=== PATIENT | female | born 1990 | race Hispanic/Latino ===

== ENCOUNTER 2017-03-18 23:48 | Emergency (ER) | payer OTHER ==
[2017-03-19 01:04] VITALS: BP 107/60; PULSE 69; RESP 16; TEMP 97.6; O2SAT 98
[2017-03-19] MEDS ORDERED: Sodium Chloride 0.9% 1,000 ML IV STA (02:36)
[2017-03-19 02:58] LABS: BASO % 0.5 % (0.0-2.0); EOS # 0.1 K/uL (0.0-0.7); EOS % 1.4 % (0.0-4.0); HEMOGLOBIN 11.6 g/dL (12.0-16.0); LYMPH # 2.7 K/uL (1.0-4.3); LYMPH % 34.7 % (20.0-40.0); MEAN CELL VOLUME 66.8 fl (81.0-99.0); MEAN CORPUSCULAR HEMOGLOBIN 20.7 pg (27.0-31.0); MEAN PLATELET VOLUME 7.3 fl (7.2-11.7); MONO # 0.8 K/uL (0.0-0.8); MONO % 10.1 % (0.0-10.0); NEUT # 4.2 K/uL (1.8-7.0); NEUT % 53.3 % (50.0-75.0); NRBC % 0.1 % (0.0-0.0); RBC 5.59 Mil/uL (3.80-5.20); RED CELL DISTRIBUTION WIDTH 15.3 % (11.5-14.5); WHITE BLOOD COUNT 7.8 K/uL (4.8-10.8)
--- NOTE | 2017-03-19 03:10 | ED PDOC ---
HPI: Headache Time Seen by Provider: 03/19/17 02:30 Chief Complaint (Nursing): Headache Chief Complaint (Provider): headache History Per: Patient History/Exam Limitations: no limitations Onset/Duration Of Symptoms: Days (7) Current Symptoms Are (Timing): Still Present Pain Scale Rating Of: 7 Quality: Pressure Preceeding Symptoms: None Additional Complaint(s): Taniya Parra is a 26 yo F with PMH anemia who presented to the ED with complaint of L sided occipital headache x 1 week and lymphadenopathy in R posterior cervical chain x 1 month. Describes headache as unlike her usual headaches (which are more frontal), and describes the pain as a slow pulsating feeling, rates pain 7/10. Denies vomiting, nausea, loss of balance, loss of coordination, blurry vision, changes in vision. She took advil 2 days ago, states that it helped but that the pain came back when she awoke the next day. Also complains of having had a "sore and stiff" neck during Christmastime ( about 1 mo ago). States she has been feeling a "lump" in her neck on the R side since then, though the "soreness and stiffness" have since resolved. PMH: anemia Fam Hx: anemia Social hx: denies tobacco use, alcohol 4-5 shots or glasses of wine/time on 1 day a week, denies illicit drug use LMP: 03/18/17 Past Surg hx: none Past Medical History Vital Signs: Last Vital Signs Temp 97.6 F 03/19/17 01:01 Pulse 69 03/19/17 01:01 Resp 16 03/19/17 01:01 BP 107/60 03/19/17 01:01 Pulse Ox 98 03/19/17 01:01 - Medical History PMH: Anemia - Surgical History Surgical History: No Surg Hx - Family History Family History: States: Other Denies: Stroke, Diabetes, Hypertension Other Family History: anemia - Social History Current smoker - smoking cessation education provided: No Alcohol: Social Drugs: Denies - Home Medications Home Medications: Ambulatory Orders Medication Instructions Recorded Acetaminophen/Butalbital/Caf 1 tab PO TID PRN #15 tab 03/19/17 [Fioricet] Naproxen [Naprosyn] 1 tab PO BID PRN #30 tab 03/19/17 - Allergies Allergies/Adverse Reactions: Allergies Allergy/AdvReac Type Severity Reaction Status Date / Time Penicillins Allergy ANAPHYLAXIS Verified 03/19/17 01:05 Review of Systems Constitutional: Negative for: Fever, Chills, Weight loss Eyes: Negative for: Vision Change ENT: Negative for: Ear Pain, Nose Discharge, Throat Pain Cardiovascular: Negative for: Chest Pain, Palpitations, Light Headedness Respiratory: Negative for: Cough, Shortness of Breath Gastrointestinal: Negative for: Nausea, Vomiting, Abdominal Pain, Diarrhea Genitourinary Female: Negative for: Dysuria, Frequency Musculoskeletal: Positive for: Neck Pain Neurological: Positive for: Headache. Negative for: Weakness, Numbness, Incoordination Physical Exam - Reviewed Vital Signs Reviewed: Yes - Physical Exam Head Exam: Positive for: ATRAUMATIC, NORMOCEPHALIC Skin: Positive for: Normal Color, Warm, Dry Eye Exam: Positive for: Normal appearance, PERRL ENT: Positive for: Normal ENT Inspection, Pharynx Is (clear). Negative for: Nasal Congestion, Pharyngeal Erythema Neck: Positive for: Supple. Negative for: Painless ROM Cardiovascular/Chest: Positive for: Regular Rate, Rhythm. Negative for: Murmur Respiratory: Positive for: Normal Breath Sounds. Negative for: Accessory Muscle Use, Respiratory Distress Gastrointestinal/Abdominal: Positive for: Bowel Sounds, Soft. Negative for: Tenderness Extremity: Positive for: Normal ROM. 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 Pt discussed/seen with Dr. Benitez Disposition - Clinical Impression Clinical Impression: Headache - Patient ED Disposition Is Patient to be Admitted: No - Disposition Referrals: [facility] [place] [Outside] (CALL TOMORROW TO SETUP FOLLOW UP APPOINTMENT WITHIN A WEEK) Disposition: Routine/Home Disposition Time: 04:35 Condition: STABLE Prescriptions: Acetaminophen/Butalbital/Caf [Fioricet] 1 tab PO TID PRN #15 tab PRN Reason: SEVERE HEADACHE ONLY Naproxen [Naprosyn] 1 tab PO BID PRN #30 tab PRN Reason: Headache Instructions: Acute Headache (ED) Forms: [employer] (Spanish)
[2017-03-19 03:13] LABS: ALB/GLOB RATIO 1.3 (1.0-2.1); ALBUMIN 4.4 g/dL (3.5-5.0); ALT/SGPT 15 U/L (9-52); AST/SGOT 27 U/L (14-36); BLOOD UREA NITROGEN 13 mg/dl (7-17); GFR AFRICAN-AMERICAN > 60; GFR NON-AFRICAN AMERICAN > 60
--- NOTE | 2017-03-19 11:09 | CT ---
PROCEDURE: CT HEAD WITHOUT CONTRAST. HISTORY: DIZZINESS HEADACHE COMPARISON: None available. TECHNIQUE: Axial computed tomography images were obtained through the head/brain without intravenous contrast. Radiation dose: Total exam DLP = 852.70 mGy-cm. This CT exam was performed using one or more of the following dose reduction techniques: Automated exposure control, adjustment of the mA and/or kV according to patient size, and/or use of iterative reconstruction technique. FINDINGS: HEMORRHAGE: No intracranial hemorrhage. BRAIN: No mass effect or edema. No atrophy or chronic microvascular ischemic changes. VENTRICLES: Unremarkable. No hydrocephalus. CALVARIUM: Unremarkable. PARANASAL SINUSES: Unremarkable as visualized. No significant inflammatory changes. MASTOID AIR CELLS: Unremarkable as visualized. No inflammatory changes. OTHER FINDINGS: None. IMPRESSION: No acute intracranial abnormalities. No significant findings to account for the clinical presentation. Concordant results (preliminary interpretation) provided by [facility]. Procedure Completed: 03:15 Preliminary ([facility]) Report: Dictated and Authenticated: 03:36 Final Interpretation: 11:07 2017.
== END 2017-03-19 04:51 | disposition home or self-care (01) ==
LOC: H.ER 23:48
DX: R51 Headache (principal); D64.9 Anemia, unspecified; Z88.0 Allergy status to penicillin
CPT/HCPCS: 70450; 80053; 81025; 83735; 84100; 85025; 86308; 96374; 99283; J1885